=== PATIENT | male | born 1965 | race Caucasian/White ===

== ENCOUNTER 2023-08-19 09:12 | Outpatient (RCR) | payer MEDICARE ==
[~2023-08-19 09:12] MED LIST: MINERAL OIL/PETROLAT/GLYCERI 6OZ BTL ONE; TRYPSIN/BALSAM PERU/CASTOR OIL ONE
[2023-08-19] MEDS ORDERED: CLOTRIMAZOLE/BETAMETHASONE 45 GM CR TP ONE (13:18)
[2023-08-19] MEDS ORDERED: MINERAL OIL/PETROLAT/GLYCERI 6OZ BTL ONE (13:18)
== END 2023-08-23 07:48 | disposition home or self-care (01) ==
LOC: WCC 09:12
PROVIDERS: ATTEND Podiatrist Foot & Ankle Surgery
DX: E11.621 Type 2 diabetes mellitus with foot ulcer (principal); E11.40 Type 2 diabetes mellitus with diabetic neuropathy, unspecified; L97.528 Non-pressure chronic ulcer of other part of left foot with other specified severity; L97.428 Non-pressure chronic ulcer of left heel and midfoot with other specified severity; L97.419 Non-pressure chronic ulcer of right heel and midfoot with unspecified severity; R60.0 Localized edema; L84 Corns and callosities